=== PATIENT | female | born 1955 | race Caucasian/White ===

== ENCOUNTER 2018-07-03 09:28 | Emergency (ER) | payer BC ==
[2018-07-03 09:43] VITALS: BP 173/87
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
[2018-07-03] MEDS ORDERED: Silver Sulfadiazine 1%* 20 GM TOPICAL ONE (09:58)
== END 2018-07-03 10:22 | disposition home or self-care (01) ==
LOC: UCEAST 09:28
DX: T23.201A Burn of second degree of right hand, unspecified site, initial encounter (principal); X12.XXXA Contact with other hot fluids, initial encounter; Y92.9 Unspecified place or not applicable
CPT/HCPCS: 16000; 16020; 99212; 99213; A9270-GY; G0463